=== PATIENT | female | born 2000 | race Caucasian/White ===

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

== ENCOUNTER 2018-04-04 16:57 | Emergency (ER) | payer OTHER ==
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
[2018-04-04 17:45] VITALS: BP 120/68
== END 2018-04-04 17:52 | disposition short-term general hospital (02) ==
DX: Z04.41 Encounter for examination and observation following alleged adult rape (principal); F32.9 Major depressive disorder, single episode, unspecified